=== PATIENT | male | born 1985 | race Caucasian/White ===

== ENCOUNTER → 2024-03-03 | Outpatient (CLI) | payer BC ==
--- NOTE | 2024-03-03 20:21 | MR ---
EXAMINATION TYPE: MR lumbar spine wo con DATE OF EXAM: 03/03/2024 12:07 PM COMPARISON: 03/25/2011. CLINICAL INDICATION: Male, 38 years old with history of M54.42 LUMBAGO WITH SCIATICA, LEFT SIDE; PHH, Low back pain, lower body weakness TECHNIQUE: Multi planar, multi sequence imaging was performed utilizing: T1-weighted, T2-weighted, a nd turbo inversion recovery imaging of the lumbar spine. IV Contrast: (None, if empty) FINDINGS: Alignment: The lumbar vertebral bodies have preserved heights and alignment. Cord: The conus medullaris and the distal spinal cord appear unremarkable with regards to their signa l intensity and morphology. Bones/Discs: Mild degeneration changes throughout the spine with osteophyte formation and facet joint arthropathy. Multilevel disc desiccation is present. Reactive adjoining endplate edema at L5-S1 T12-L1: No evidence of significant spinal canal stenosis or neural foraminal stenosis. L1-L2: No evidence of significant spinal canal stenosis or neural foraminal stenosis. L2-L3: No evidence of significant spinal canal stenosis or neural foraminal stenosis. L3-L4: No evidence of significant spinal canal stenosis or neural foraminal stenosis. L4-L5: No evidence of significant spinal canal stenosis or neural foraminal stenosis. L5-S1: Central disc protrusion with out significant spinal canal stenosis. This closely approximates the left forming nerves in the spinal canal series 601 image 3. Facet joint arthropathy with mild nabil ateral neural foraminal stenosis. No significant spinal canal or neural foraminal stenosis in the remainder of the visualized levels. Other findings: None. IMPRESSION: 1. L5-S1 central disc protrusion which closely approximates the forming left nerve with this level. No evidence for significant spinal canal stenosis or neural foraminal stenosis. 2. Mild degeneration changes spine with reactive bony edema at the L5-S1 adjoining endplates. [facility], , 03/03/2024 8:19 PM
== END | disposition home or self-care (01) ==
LOC: RADMRIMAIN 11:01
PROVIDERS: ATTEND Family Medicine
DX: M51.17 Intervertebral disc disorders with radiculopathy, lumbosacral region (principal); R60.9 Edema, unspecified
CPT/HCPCS: 72148